=== PATIENT | female | born 1985 | race Caucasian/White ===

== ENCOUNTER 2018-02-02 21:12 | Observation (INO) | payer BC ==
[~2018-02-02] VITALS: Ht 172.7 cm; Wt 98.4 kg
[2018-02-02 22:35] VITALS: BP 113/62; PULSE 65; TEMP 98.1
[2018-02-03] VITALS (9 sets, daily range): BP systolic 99–128; BP diastolic 48–75; PULSE 57–75; TEMP 98–98.6
[2018-02-04] MEDS ORDERED: NORCO 325 MG-51 TAB PO (03:30)
== END 2018-02-03 15:30 | disposition home or self-care (01) ==
LOC: SURG 21:12
DX: N20.1 Calculus of ureter (principal); Z90.49 Acquired absence of other specified parts of digestive tract; Z88.5 Allergy status to narcotic agent; Z84.1 Family history of disorders of kidney and ureter
CPT/HCPCS: C1769; C1894; C2617; G0378; J0690; J1100; J1170; J1885; J2405; J2704; J3010; J7030; Q9967

== ENCOUNTER 2018-02-04 03:05 | Emergency (ER) | payer BC ==
[~2018-02-04] VITALS: Ht 172.7 cm; Wt 90.9 kg
[2018-02-04 03:07] VITALS: TEMP 98
[2018-02-04] MEDS ORDERED: NORCO 325 MG-51 TAB PO (03:30)
[2018-02-04 04:21] LABS: BASO % 0.2 % (0.0-2.0); EOS % 0.2 % (0-4.0); GRAN # 3.6 (1.4-6.5); GRAN % 74.3 % (42.2-75.2); LYMPH # 0.9 (1.2-3.4); MEAN CELL VOLUME 87 fl (80.0-100.0); MEAN CORPUSCULAR HGB CONC 31 g/dl (33.0-37.0); MEAN PLATELET VOLUME 11.5 fl (7.4-10.4); MONO # 0.3 (0.1-0.6); MONO % 6.9 % (1.7-9.3); PLATELET COUNT 189 K/mm3 (130-400); RED BLOOD COUNT 3.22 M/mm3 (4.10-5.30); REDCELL DISTRIBUTION WIDTH-CV 15.9 % (11.5-14.5)
[2018-02-04 04:24] LABS: HEMOGLOBIN 8.8 g/dl (12.5-16.0); MEAN CORPUSCULAR HEMOGLOBIN 27 pg (27.0-31.0)
[2018-02-04 04:32] LABS: ALANINE AMINOTRANSFERASE 25 U/L (9-52); ALBUMIN 3.8 gm/dL (3.5-5.0); ALKALINE PHOSPHATASE 46 U/L (50-136); ANION GAP 12 mmol/L (7-16); AST,SGOT 15 U/L (15-37); BILIRUBIN,TOTAL 0.3 mg/dL (0.0-1.0); BLOOD UREA NITROGEN 18 mg/dL (7-17); CALCIUM 8.6 mg/dL (8.4-10.2); CARBON DIOXIDE 19 mmol/L (22-30); CHLORIDE 108 mmol/L (98-107); CREATININE, serum 0.81 mg/dL (0.52-1.25); GLUCOSE 114 mg/dL (74-106); SODIUM 139 mmol/L (137-145)
[2018-02-04 04:43] LABS: PROTHROMBIN TIME 11.6 SECONDS (9.7-12.8)
[2018-02-04 04:46] LABS: TROPONIN-I < 0.012 ng/mL (0.000-0.034)
[2018-02-04 06:37] VITALS: BP 108/66; PULSE 46
== END 2018-02-04 06:49 | disposition home or self-care (01) ==
LOC: COL.ER 03:05
PROVIDERS: Emergency Medicine
DX: R00.1 Bradycardia, unspecified (principal); T50.905A Adverse effect of unspecified drugs, medicaments and biological substances, initial encounter; R07.89 Other chest pain; F41.9 Anxiety disorder, unspecified; Z87.442 Personal history of urinary calculi; Z90.49 Acquired absence of other specified parts of digestive tract; Z98.890 Other specified postprocedural states
CPT/HCPCS: J7030

== ENCOUNTER 2019-08-16 11:25 | Inpatient (IN) | payer BC ==
[~2019-08-16] VITALS: Ht 172.7 cm; Wt 109.5 kg
[2019-08-16] VITALS (26 sets, daily range): BP systolic 100–122; BP diastolic 53–77; PULSE 65–113; TEMP 98
[~2019-08-16 11:25] MED LIST: NORCO 325 MG-51 TAB PO
--- NOTE | 2019-08-16 11:30 | NUR ---
Presents to labor and delivery. States has been having contractions since last night. Assessment done, questions offered and answered.
[2019-08-16] MEDS ORDERED: PRENATAL MVI (12:07)
[2019-08-16] MEDS ORDERED: NATURAL IRON65 MG (12:08)
--- NOTE | 2019-08-16 12:30 | NUR ---
1240 Dr. Espino here, vag exam done. Reports dilated to five, ninty percent effaced and minus two station. Orders to admit to labor and delivery.1255 Iv to left hand.
--- NOTE | 2019-08-16 13:00 | NUR ---
1310 Dr. Espino here, arom done. Moderate amount of clear fluid noted.
[2019-08-16 13:38] LABS: BASO % 0.4 % (0.0-2.0); EOS # 0.1 (0.0-0.7); EOS % 1.3 % (0-4.0); GRAN # 5.2 (1.4-6.5); GRAN % 74.9 % (42.2-75.2); HEMOGLOBIN 10.4 g/dl (12.5-16.0); LYMPH # 1.2 (1.2-3.4); LYMPH % 16.9 % (20.0-51.0); MEAN CELL VOLUME 101 fl (80.0-100.0); MEAN CORPUSCULAR HEMOGLOBIN 33 pg (27.0-31.0); MEAN CORPUSCULAR HGB CONC 33 g/dl (33.0-37.0); MEAN PLATELET VOLUME 11.3 fl (7.4-10.4); MONO # 0.4 (0.1-0.6); MONO % 5.9 % (1.7-9.3); PLATELET COUNT 154 K/mm3 (130-400); RED BLOOD COUNT 3.15 M/mm3 (4.10-5.30); REDCELL DISTRIBUTION WIDTH-CV 15.1 % (11.5-14.5)
[2019-08-16 13:40] LABS: HEMATOCRIT 31.8 % (37.0-47.0)
--- NOTE | 2019-08-16 14:16 | NUR ---
Pt sitting at EOB for epidural placement. Difficulty tracing FHR due to maternal postion. RN at bedside adjusting monitors. FHR audible.
--- NOTE | 2019-08-16 16:15 | NUR ---
Dr. Burns at bedside. SVE per provider C/-2. Pt prepped for delivery. Coached on pushing efforts. 1630-Vaccum extraction discussed with pt. Pt agrees to POC. Vaccuum applied. 1630-First pop off noted. Pt continues pushing 1639-Vaccuum applied. Second pop off noted. Pt continues pushing. 1728- of viable female attended by Dr. Burns. Cord clamped x 2 and cut from umbilicus. Infant dried and placed on mother's abdomen. Care of infant to Moose Hollins RN. Apgars 8//9. 1730- of placenta. Fundus firm at umbilicus. Bleeding WNL. Pitocin infusing per protocol. Second degree laceration repaired per provider. Pericare performed. Ice pack applied. Pt updated on POC. Safety reviewed. Bed locked in low positon. Call light within reach. No questions or concerns at this time.
--- NOTE | 2019-08-16 20:15 | NUR ---
Pt able to lift and hold each leg off of bed for 5 seconds. Pt repositioned to sitting on edge of bed. Epidural catheter removed. Tip blue, smooth, and intact. Pt able to ambulate to bathroom with standby assistance. Pt able to void 100 mL. Pericare explained and provided. Mesh panties and peripad on. New gown on. Pt transferred to room 208 by wheelchair with belongings.
[2019-08-16] MEDS ORDERED: MOTRIN 800800 MG/TAB PO (23:28)
[2019-08-17 01:00] VITALS: BP 114/65; PULSE 85; TEMP 97.8
[2019-08-17 05:15] VITALS: BP 98/49; PULSE 71; TEMP 97.9
[2019-08-17 07:40] VITALS: BP 101/57; PULSE 73; TEMP 97.8
[2019-08-17 11:00] VITALS: BP 106/59; PULSE 77; TEMP 98.2
--- NOTE | 2019-08-17 11:05 | NUR ---
Initial visit; Parents thanked Line Walker for offering congratulations and God's blessings for the of their daughter. Line Walker thanked family for choosing [facility].
[2019-08-17 16:06] VITALS: BP 98/54; PULSE 64; TEMP 98.1
== END 2019-08-17 19:51 | disposition home or self-care (01) | DRG 807 ==
LOC: LDRO 11:25 → LDR 11:30 → LDRO 13:10 → LDR 13:10 → OB 13:10
PROVIDERS: ADMIT Obstetrics & Gynecology
PROC: 10D07Z6 Extraction of Products of Conception, Vacuum, Via Natural or Artificial Opening (ICD-10-PCS; principal; 2019-08-16)
PROC: 0KQM0ZZ Repair Perineum Muscle, Open Approach (ICD-10-PCS; 2019-08-16)
PROC: 10907ZC Drainage of Amniotic Fluid, Therapeutic from Products of Conception, Via Natural or Artificial Opening (ICD-10-PCS; 2019-08-16)
DX: O99.02 Anemia complicating childbirth (principal); Z37.0 Single live birth; O70.1 Second degree perineal laceration during delivery; Z3A.38 38 weeks gestation of pregnancy; D64.9 Anemia, unspecified; O76 Abnormality in fetal heart rate and rhythm complicating labor and delivery
CPT/HCPCS: J0595; J2405; J2590; J2795; J7120